=== PATIENT | female | born 1975 | race African-American/Black ===

== ENCOUNTER 2020-09-27 13:19 | Emergency (ER) | payer OTHER ==
[~2020-09-27] VITALS: Wt 86.2 kg
[2020-09-27 13:48] LABS: BASO % 0.5 % (0.0-1.0); EOS # 0.2 10*3/uL (0.0-0.4); EOS % 2.2 % (1.0-4.0); HEMATOCRIT 41.7 % (37.0-47.0); LYMPH # 3.7 10*3/uL (1.3-4.4); LYMPH % 43.4 % (27.0-41.0); MEAN CELL VOLUME 89.5 fl (81.0-99.0); MEAN CORPUSCULAR HGB 29.8 pg (27.0-31.0); MEAN CORPUSCULAR HGB CONC 33.3 g/dl (33.0-37.0); MEAN PLATELET VOLUME 10.7 fl (9.6-12.3); MONO # 0.5 10*3/uL (0.1-1.0); MONO % 5.8 % (3.0-9.0); NEUT # 4.1 10*3/uL (2.3-7.9); NEUT % 47.7 % (47.0-73.0); PLATELET COUNT AUTOMATED 218 10*3/uL (130-400); RED BLOOD COUNT 4.66 10*6/uL (4.10-5.10); RED CELL DISTRI WIDTH 14.5 % (0-14.5); WHITE BLOOD COUNT 8.5 10*3/uL (4.8-10.8)
[2020-09-27 14:00] LABS: BUN 10 mg/dl (7-24); CHLORIDE 111 mmol/L (98-107); POTASSIUM 3.7 mmol/L (3.5-5.1); SODIUM 141 mmol/L (136-145); URIC ACID 4.1 mg/dL (2.6-6.0)
== END 2020-09-27 15:54 | disposition home or self-care (01) ==
LOC: ED 13:19
PROVIDERS: Physician Assistant
DX: M65.88 Other synovitis and tenosynovitis, other site (principal)